=== PATIENT | male | born 1935 | race Caucasian/White ===

== ENCOUNTER 2017-11-29 18:42 | Emergency (ER) | payer MEDICARE, SELFPAY ==
[2017-11-29 18:43] VITALS: BP 138/74; PULSE 71; RESP 14; TEMP 36.9; O2SAT 99; BMI 24.5
--- NOTE | 2017-11-29 18:59 | CT_ITS ---
STUDY: CT BRAIN WITHOUT CONTRAST REASON FOR EXAM: Male, 82 years old. Trauma RADIATION DOSAGE (If Supplied By Facility): CTDIvol = ( 60.81 ) mGy, DLP = ( 1067.08 ) mGycm TECHNIQUE: Transaxial CT imaging of the brain was performed without administration of intravenous contrast material. Individualized dose optimization techniques were used for this CT. COMPARISON: None. FINDINGS: Normal soft tissue structures. Normal calvarium. There is mild cerebral atrophy with widening of the extra-axial spaces and ventricular dilatation. There are areas of decreased attenuation within the white matter tracts of the supratentorial brain, consistent with microvascular disease changes. There is an old lacunar infarct of the right thalamus. Normal brainstem. Normal cerebellum. There is no intracranial hemorrhage. There are no findings of an acute ischemic infarction. There is mucosal thickening of the left maxillary sinus. CT/Brain/Head without Contrast IMPRESSION: Chronic involutional changes of the brain. 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 Mucosal thickening of the left maxillary sinus. Electronically Signed: Kirby Zhao MD at 19:33 EST , Service support ,
[2017-11-29] MEDS: Diphth,Pertuss(Acell),Tet Vac 0.5 ML Vial IM (19:24)
--- NOTE | 2017-11-29 20:22 | ED.VISSUMM ---
- ER Visit Summary Date of Service: 11/29/17 Chief Complaint: Fall History of Present Illness: The patient is a 82 M who sees Pankaj Juvenal. He reports that they were walking the dog and the dog pulled him down. He hit his head on the ground. Did not have a loss of consciousness. Is not on blood thinners. He is unsure when his last tetanus shot was. He denies any neck, back, shoulder, wrist, or hip pain. Physical Examination: Vitals: Stable. Afebrile. Head: 2 cm laceration in the lateral portion of the right eyebrow that is irregular and has tissue missing. Abrasion to the right maxilla. Neck: No vertebral tenderness. Full ROM without difficulty. Cleared by NEXUS criteria. Back: No vertebral tenderness. General: A&O x 3. NAD. Cardiovascular exam: Regular rate and rhythm, no murmur, rub or gallop. Respiratory exam: Chest nontender. No crepitus. Clear to auscultation bilaterally. No wheezes or stridor. Abdominal exam: Soft, nontender, nondistended, normal bowel sounds. No pain in RUQ or LUQ specifically. No peritoneal signs. Extremity: Atraumatic. No pain with range of motion. Test Results: CT head shows chronic changes and no intracranial hemorrhage. Emergency Department Course and Treatment: Patient was treated with Adacel IM. He refused pain medications. He had his wound anesthetized and repaired. He tolerated it well. Treatment Plan: Will be discharged instructions to follow-up Pankaj Crosspkins as needed. Disposition: To home in improved and stable condition. Impression: 1. Fall. 2. Laceration right eyebrow, 2 cm, repaired. Procedure note: Wound was cleansed with chlorhexidine soap. Anesthetized with 1% lidocaine without epinephrine. Copiously irrigated with normal saline. Wound was explored there is no foreign material present. It was debrided to bring together the area with where there was missing tissue. It was closed with 8 simple interrupted 5-0 rapid Vicryl sutures. The patient tolerated it well. This note was generated with [employer] software. It may contain incorrect words, spelling, and punctuation that were not noted in review of the chart prior to signing ED Disposition - Plan for ED Patient: Disposition: Home or Assisted Living Chief Complaint: Laceration Instructions: ED Laceration Facial Sutr Tape Referrals: Teddy Herron [Primary Care Provider] - As Needed
[2017-11-29 20:34] VITALS: PULSE 52
== END 2017-11-29 20:36 | disposition home or self-care (01) ==
PROVIDERS: Emergency Provider Emergency Medicine; Family Provider Nurse Practitioner Family; PCP Nurse Practitioner Family
DX: S01.111A Laceration without foreign body of right eyelid and periocular area, initial encounter (principal); W18.39XA Other fall on same level, initial encounter; Y93.K1 Activity, walking an animal; Y92.9 Unspecified place or not applicable; Y99.9 Unspecified external cause status; I10 Essential (primary) hypertension; E78.00 Pure hypercholesterolemia, unspecified
CPT/HCPCS: 12011; 70450; 90471; 90715; 99283; A4216

== ENCOUNTER 2020-05-15 18:25 | Observation (INO) | payer MEDICARE, SELFPAY ==
[2020-05-15 18:26] VITALS: BP 105/86; PULSE 71; RESP 18; TEMP 37; O2SAT 95; BMI 16.9
--- NOTE | 2020-05-15 18:52 | ED.VIS.GEN ---
History of Present Illness Chief Complaint: Fall Informant: Patient, Family Narrative: Patient is an 84-year-old male with a history of dementia who presents to the ED with his for concerns of not being able to take care of him at home. She states that he has been having more frequent falls. He did have a fall today. She states that he will wander off and not listen to her. She does not have any help at home currently. It is that she is busy taking care of her sick mother as well. Patient denies any injury. Has no complaints at time of physical exam. states he has not been eating and is has had a significant weight loss. She feels like he is giving up. He denies taking any medications. Denies any recent illnesses. Denies any headache, vision changes. No chest pain or shortness of breath. No abdominal pain or nausea/vomiting. No injury to neck or back. Does have a small abrasion over the back of the neck. No injury to his extremities. Past Medical History - Allergies and Home Meds Allergies/Adverse Reactions: Allergies No Known Allergies Allergy (Verified 05/15/20 18:31) Prior records reviewed: Yes Past Medical History: - - Hypertension, hyperlipidemia, hypothyroidism Lives: Spouse/ Significant Other Smoking Status: Never smoker Review of Systems All systems negative except as indicated General: Denies: Chills, Fever, Sweats Eyes: Denies: Visual changes - bilaterally, Diplopia ENT: Denies: Rhinorrhea, Sore throat Cardiovascular: Denies: Chest pain, Palpitations Respiratory: Denies: Dyspnea, Cough, Dyspnea on exertion Gastrointestinal: Denies: Abdominal pain, Nausea, Vomiting, Diarrhea Genitourinary: Denies: Dysuria, Hematuria, Frequency Musculoskeletal: Denies: Neck pain, Back pain, Extremity Pain Skin: Denies: Rash, Wounds Neurological: Denies: Headache, Weakness, Numbness Physical Exam Vital Signs/Narrative: Vital Signs Temp Pulse Resp BP Pulse Ox 05/15/20 18:26 98.6 F 71 18 105/86 H 95 Inital Vital Signs reviewed: Yes General: Cachectic, No Acute Distress Head: Normocephalic, Atraumatic Eyes: Perrl, EOMI ENT: No rhinorrhea, Dry mucous membranes Neck: Supple, Nontender Cardiovascular: Regular rate, Regular rhythm, No murmurs Respiratory: No distress, CTA bilaterally, Chest nontender Abdomen: Soft, Nontender, Nondistended, Normal bowel sounds Back: Nontender, Normal Inspection. Negative for: Spinal tenderness Extremities: Nontender, No edema Skin: Normal color, No rash, - - Superficial skin abrasion over back and neck. Neurological: Alert, Cranial nerves II-XII grossly intact, Normal Strength, Normal Sensation, - - Patient oriented to person and place but not time. Psychological: Normal affect, Normal Mood Diagnostic/Tx/Re-eval - EKG Initial EKG Interpretation: - - Rate of 54 bpm in sinus bradycardia. Normal intervals. Normal axis. No ST elevations or depressions appreciated. No T wave abnormalities. No prior EKG for comparison. - Medical Decision Making Patient presents to the ED for what sounds like failure to thrive at home. He has been having frequent falls. does not feel comfortable taking care of him at home. She does not have any help. Will check basic lab work at this time. We will plan on bringing into the hospital for placement. Lab work showed a very mildly elevated white blood cell count. Very mildly anemic as well. Otherwise no significant abnormality on lab work-up. Troponin within normal limits. Patient and patient's are agreeable to bring him in for rehab evaluation and possible placement. He otherwise has been stable throughout ED stay. ED Disposition - Plan for ED Patient: Disposition: [facility] Diagnosis: Frequent falls, Failure to thrive, Ambulatory dysfunction
--- NOTE | 2020-05-15 18:56 | EKG12_ITS ---
Test Reason : WAKNESS Blood Pressure : / mmHG Vent. Rate : 054 BPM Atrial Rate : 054 BPM P-R Int : 174 ms QRS Dur : 076 ms QT Int : 428 ms P-R-T Axes : 044 001 038 degrees QTc Int : 405 ms Sinus bradycardia Septal infarct , age undetermined Abnormal ECG Confirmed by EDILBERTO HAMILTON ([id number]), editor producer CUONG BLUE ([id number]) on 05/19/2020 2:08:06 PM Referred By: DEANDRA Confirmed By:EDILBERTO HAMILTON
--- NOTE | 2020-05-15 18:56 | CT_ITS ---
STUDY: CT BRAIN WITHOUT CONTRAST REASON FOR EXAM: Male, 84 years old. FALL ON CONCRETE -- HX:HTN RADIATION DOSAGE (If Supplied By Facility): CTDIvol = ( 44.99 ) mGy, DLP = ( 863.60 ) mGycm TECHNIQUE: Transaxial CT imaging of the brain was performed without administration of intravenous contrast material. Individualized dose optimization techniques were used for this CT. COMPARISON: Previous study of 11/29/2017 FINDINGS: Normal soft tissue structures. Normal calvarium. There is mild cerebral atrophy with widening of the extra-axial spaces and ventricular dilatation. There are areas of decreased attenuation within the white matter tracts of the supratentorial brain, consistent with microvascular disease changes. Normal basal ganglia and thalami. Normal brainstem. There is mild cerebellar atrophy. There is no intracranial hemorrhage. There are no findings of an acute ischemic infarction. There is mild mucosal thickening of the right maxillary sinus. CT/Brain/Head without Contrast IMPRESSION: Chronic involutional changes of the brain. Mild mucosal thickening of the right maxillary sinus. There is no intracranial hemorrhage or calvarial fracture. Electronically Signed: Kirby Zhao MD at 20:09 EDT , Service support ,
[2020-05-15 19:42] LABS: Absolute Neutrophil Count 10.5 X10^3/uL (2.0-7.7); Basophil# 0.04 X10^3/uL; Basophil% 0.3 % (0-1); Eosinophil# 0.23 X10^3/uL; Eosinophils% 1.7 % (0-5); Hemoglobin 10.7 g/dL (13.0-16.5); Lymphocyte % 11.2 % (19-41); Mean Corp Hgb Conc 32.4 g/dL (32-36); Mean Corpuscular Hgb 31.9 pg (27.0-32.0); Mean Corpuscular Volume 98.5 fL (80-94); Mean Platelet Vol. 9.5 fl (6.2-12.0); Monocyte# 1.06 X10^3/uL; Monocyte% 7.9 % (0-10); NRBC Flagged by Analyzer 0 % (0-5); Neutrophil # 10.46 X10^3/uL (2.7-7.7); Neutrophil % 78.4 % (47-70); Platelet Count 199 K/mm3 (150-450); RBC Distribution Width CV 13.6 % (11.6-14.6); RBC Distribution Width SD 48.8 fl (35.1-43.9); Red Blood Count 3.35 M/mm3 (4.6-6.2); White Blood Count 13.4 K/mm3 (4.4-11.0)
--- NOTE | 2020-05-15 19:45 | RAD_ITS ---
STUDY: X-RAY CHEST REASON FOR EXAM: Male, 84 years old. WEAKNESS, PT FELL ON CONCRETE, EMS STATES HES BEEN OUTSIDE FOR AWHILE, CONCERNED FOR MORE FREQUENT FALLS TECHNIQUE: Single AP portable view of the chest. COMPARISON: None. FINDINGS: color television console monitor leads are present. There are prominent bronchopulmonary markings of the upper lobes. There is no demonstrated pleural abnormality. The heart size is within normal limits. Status post median sternotomy changes are seen. Normal mediastinum and ann marie. Normal visualized pulmonary arteries. There are calcified plaques of the aortic arch. Normal visualized thoracic spine. Normal visualized ribs, clavicles, and shoulders. There is no demonstrated abnormality of the visualized soft tissue structures of the upper abdomen. RAD/Chest 1 View (Portable) IMPRESSION: Prominent bronchopulmonary markings of the upper lobes. Comparison with any previous chest films is recommended if such are available. There is no evidence of liliana consolidation or atelectasis. Status post sternotomy. Calcified plaques of the aortic arch. Electronically Signed: Kirby Zhao MD at 20:02 EDT , Service support ,
[2020-05-15 19:58] LABS: Anion Gap 5 (5-15); BUN 13 mg/dL (7-18); BUN/Creat Ratio 13.2 RATIO (10-20); Chloride 110 mmol/L (98-107); Creatinine, Serum 0.98 mg/dL (0.70-1.30); EST Glomerular Filtration Rate 77 mL/min (>60); Est Glom Filt Rate - Afr Amer 93 mL/min (>60); Estimated Creatinine Clearance 37.78 ml/min; Glucose 87 mg/dL (74-106); Potassium 3.9 mmol/L (3.5-5.1); Sodium Level 143 mmol/L (136-145)
--- NOTE | 2020-05-15 20:19 | PCM.HP.STD ---
Problem List (1) Failure to thrive Status: Acute Qualifiers: Failure to thrive age range: in adult Qualified Code(s): R62.7 - Adult failure to thrive (2) Dementia Status: Chronic Qualifiers: Dementia type: unspecified type Dementia behavioral disturbance: without behavioral disturbance Qualified Code(s): F03.90 - Unspecified dementia without behavioral disturbance (3) HTN (hypertension) Status: Chronic Qualifiers: Hypertension type: essential hypertension Qualified Code(s): I10 - Essential (primary) hypertension (4) HLD (hyperlipidemia) Status: Chronic Qualifiers: Hyperlipidemia type: unspecified Qualified Code(s): E78.5 - Hyperlipidemia, unspecified (5) S/P AVR (aortic valve replacement) Status: Chronic (6) Carotid arterial disease Status: Chronic Qualifiers: Carotid artery disease type: unspecified Laterality: unspecified laterality Qualified Code(s): I77.9 - Disorder of arteries and arterioles, unspecified (7) Hypothyroidism Status: Chronic Qualifiers: Hypothyroidism type: unspecified Qualified Code(s): E03.9 - Hypothyroidism, unspecified (8) Anxiety and depression Status: Chronic (9) Frequent falls Status: Chronic History of Present Illness Date of Admission: 05/15/20 Chief Complaint: Adult Failure to Thrive, Progressing dementia, Frequent falls The patient is a 84 y/o M w/ PMHx: HTN, HLD, Anxiety and Depression, Hypothyroidism, BPH, Carotid disease with noted planning upcoming possible R CEA per Dr. Carcamo, Severe protein calorie malnutrition, Ongoing Chew Tobacco use, Valvular Heart Disease s/p AVR with [facility] valve 08/22/2012, Severe Dementia unclear type without behavioral disturbance history who presents to the [facility] ED on 05/15/20 with history of progressively worsening dementia over the last several months per spouse report and significant difficulties with frequent falls and wandering off. She denies any agitation or violent behavior per the patient. Patient's notes that her mother is been ill and had surgery and she is having a lot of difficulty taking care of him. Per spouse patient has not had any recent fever, chills, nausea, emesis, abdominal pain, dysuria, diarrhea, cough, shortness of breath. Work-up in the ED included T 90.6, heart rate 71, BP 105/86, respiratory rate 18, 95% on room air, CBC with WBC 13.4, hemoglobin 10.7, platelet 199 with left shift, BMP with chloride 110, troponin 0.016, EKG was sinus rhythm with nonspecific ST T wave changes with no acute evidence of ischemia, chest x-ray with prominent bronchopulmonary markings in the upper lobes with no comparison, no obvious consolidation or atelectasis, CT brain with chronic involutional changes with mild mucosal thickening of the right maxillary sinus with no acute intracranial findings otherwise. Past Medical History Past Medical History (Chronic Problems): Chronic Problems Frequent falls (Chronic) Dementia (Chronic) HTN (hypertension) (Chronic) HLD (hyperlipidemia) (Chronic) S/P AVR (aortic valve replacement) (Chronic) Carotid arterial disease (Chronic) Hypothyroidism (Chronic) Anxiety and depression (Chronic) Allergies No Known Allergies Allergy (Verified 05/15/20 18:31) Home Medications: Ambulatory Orders Medication Instructions Recorded Donepezil HCl 10 mg PO DAILY 11/29/17 Finasteride [Proscar] 5 mg PO DAILY 11/29/17 Levothyroxine [Synthroid] 50 mcg PO DAILY 11/29/17 Lovastatin [Mevacor] 40 mg PO DAILY 11/29/17 Metoprolol Tartrate [Lopressor 12.5 mg PO BID 11/29/17 (beta oly)] Aspirin [Aspirin, Baby] 81 mg PO DAILY@0800 05/15/20 Calcium Carbonate [Calcium] 500 mg PO DAILY 05/15/20 Cholecalciferol (VIT D3) [Vitamin 1,000 unit PO DAILY 05/15/20 D] Coconut Oil 1 tab PO DAILY 05/15/20 Ginkgo Biloba 1 tab PO DAILY 05/15/20 Grape Seed Complex 1 tab PO DAILY 05/15/20 Lisinopril 20 mg PO DAILY 05/15/20 [place]-3 Fatty Acids/Fish Oil 1 ea PO DAILY 05/15/20 [[place] 3 Fish Oil Softgel] Potassium Chloride [Klor-Con] 20 meq PO DAILY 05/15/20 Vitamin E 400 unit PO DAILY 05/15/20 Surgical History: - - AVR, bilateral total knee replacement x2 each side, hernia repairs at least 2-3 times, appendectomy. Psychiatric History: No pertinent psych hx Lives: Spouse/ Significant Other - Lives with his . Smoking Status: Never smoker Tobacco Use: Chew - With chronic chew tobacco usage now currently down to approximately 1 pack/week. Alcohol: Sober - Patient drank heavily but quit when he his current spouse. Drugs: None - *Family History Maternal History Items: Heart Disease, Stroke, - - Patient with maternal family history of stroke and heart disease. Paternal History Items: Cancer - Colon cancer., - - Patient with a paternal family history of colon cancer. Review of Systems Constitutional: Reports: Anorexia, Malaise, Weakness, Fatigue. Denies: Chills, Fever, Weight Change HEENT: Denies: Head Aches, Sinus Congestion, Sinus Drainage Cardiovascular: Denies: Chest Pain, Palpitations Respiratory: Denies: Cough, Shortness of breath at rest, Sputum production Gastrointestinal: Denies: Abdominal Pain, Nausea, Vomiting Genitourinary: Reports: Incontinence. Denies: Dysuria Musculoskeletal: Reports: Back Pain, Joint Pain. Denies: Joint Tenderness Skin: Reports: Skin Changes. Denies: Rash, Wounds Neurological: Reports: Confusion. Denies: Focal weakness, Numbness, Tingling Psychiatric: Denies: Anxiety, Depression, Homicidal Ideations, Suicidal Ideations Hematologic/ Lymphatic: Reports: Anemia, Easy Bruising, Easy Bleeding VTE Information - Inpt Only VTE Present on Admission: No VTE Mechan Device Prophylaxis: SCD's VTE Pharm Prophylaxis ordered?: Yes Patient Problems: Active and Suspected Problems Failure to thrive (Acute) Ambulatory dysfunction (Acute) Subjective: Patient seated upright in ED bed, no acute distress, does not know why he is in the ED and unable to answer orientation questions which is chronic. Objective: Physical Examination: General: awake, alert, oriented to self and , chronically severely demented, stable, remains cooperative, seated upright in the ED bed in no apparent distress. Skin: normal color, turgor, no icterus, cyanosis left occasional abrasion and scratch. HEENT: AT/NC, EOMI, PERRLA, mildly dry MM, + R carotid bruits, no JVD noted. Lungs: CTA bilaterally, moderate effort, mild decrease BL bases, no rales, ronchi or wheezing. Heart: Regular rate and rhythm; no gallop, rub audible, + SM. Abdomen: soft, cachectic appearing, NTTP, ND, normal BS, no HSM. Extremities: no cyanosis, clubbing, or edema, see skin. Neurological: patient awake, alert, oriented as noted; cognitive function baseline intact per spouse, severe underlying dementia; pupils equally reactive to light and accomodation; cranial nerves II-XII grossly normal, moving all 4 extremities, no focal deficits, strength moderately global decreased. Psychiatric: affect appears mildly flat otherwise normal, not agitated, no acute evidence of depressive or anxiety feelings. - Physical Exam Vitals/I&O's: Vital Signs Temp Pulse Resp BP Pulse Ox 98.6 F 71 18 105/86 H 95 05/15/20 18:26 05/15/20 18:26 05/15/20 18:26 05/15/20 18:26 05/15/20 18:26 Oxygen Delivery Method Room Air Weight: 104 lb 15.04 oz Body Mass Index (BMI) 16.9 Laboratory Results 05/15/20 19:30: WBC 13.4 H, RBC 3.35 L, Hgb 10.7 L, Hct 33.0 L, MCV 98.5 H, MCH 31.9, MCHC 32.4, RDW Std Deviation 48.8 H, RDW Coeff of Araceli 13.6, Plt Count 199, MPV 9.5, Immature Gran % (Auto) 0.500, Neut % (Auto) 78.4 H, Lymph % (Auto) 11.2 L, [place] % (Auto) 7.9, Eos % (Auto) 1.7, Baso % (Auto) 0.3, Absolute Neuts (auto) 10.5 H, Absolute Lymphs (auto) 1.50, Nucleated RBC % 0 05/15/20 19:30: Sodium 143, Potassium 3.9, Chloride 110 H, Carbon Dioxide 28.0, Anion Gap 5, BUN 13, Creatinine 0.98, Estim Creat Clear Calc 37.78, Est GFR (MDRD) Af Amer 93, Est GFR (MDRD) Non-Af 77, BUN/Creatinine Ratio 13.2, Glucose 87, Calcium 9.0, Troponin I 0.016 Assessment/Plan All Active Problems Failure to thrive (Acute) Ambulatory dysfunction (Acute) The patient is a 84 y/o M w/ PMHx: HTN, HLD, Anxiety and Depression, Hypothyroidism, BPH, Carotid disease with noted planning upcoming possible R CEA per Dr. Carcamo, Severe protein calorie malnutrition, Ongoing Chew Tobacco use, Valvular Heart Disease s/p AVR with [place] Alex[facility] valve 08/22/2012, Severe Dementia unclear type without behavioral disturbance history who presents to the [facility] ED on 05/15/20 with history of progressively worsening dementia over the last several months per spouse report and significant difficulties with frequent falls and wandering. 1. Adult failure to thrive with frequent falls, severe dementia without behavioral disturbance history, unclear type: We will admit to the medical surgical floor, to be cautious will also obtain urinalysis and plan repeat chest x-ray in a.m. although patient does have underlying lung disease thus patient findings on chest x-ray may be associated, will continue patient home donepezil regimen, will request physical and Occupational Therapy assessment as well as case management for plan discharge to likely facility specializing in dementia care, maintain on aspiration and fall precautions. 2. Valvular heart disease: Status post AVR in 2011, [place] valve noted on card provided per spouse, no recent echocardiogram noted in the [facility] system. 3. Carotid disease: Spouse notes patient is supposed to have upcoming right carotid intervention per Dr. Carcamo. Patient advanced disease process suggested possibly deferring this intervention. We will continue patient aspirin, statin, hypertensive regimen. 4. Severe protein calorie malnutrition: Evidenced per significantly reduced BMI, obvious fat and muscle loss, nutrition consulted. 5. Hypertension: Continue home regimen including lisinopril, metoprolol with hold parameters, PRN hydralazine. 6. Hyperlipidemia: Continue home statin regimen. 7. BPH: We will continue patient home Proscar regimen. 8. Chronic chew tobacco use: We will have patient on nicotine patch per discussion with spouse is unable to use gum. 9. DVT prophylaxis: SCDs, Lovenox. 10. CODE status: Patient ANTONIO is the patient's who is present and living will is currently in place. Discussed CODE status at length including difference between FULL code, DNR-CCA and DNR-CC status. Following discussions about the differences in these status, requested DNR CCA, no intubation with no aggressive interventions. Advanced Care Planning Face to Face Time: 16 minutes. OBSV E&M: 26297 Initial observation care L3 Procedures: 85642 Advncd Care Plan 30 Min
[2020-05-15 22:03] VITALS: BP 173/87; PULSE 61; RESP 24; TEMP 37.4; O2SAT 96
[2020-05-15 23:10] VITALS: BP 169/61; PULSE 48; RESP 18; TEMP 36.9; O2SAT 99
[2020-05-15 23:29] VITALS: BMI 16.2; BMI 16.3
[2020-05-16] VITALS (7 sets, daily range): BP systolic 121–158; BP diastolic 46–62; PULSE 43–53; RESP 16–18; TEMP 36.6–36.9; O2SAT 96–98
[2020-05-16 00:14] LABS: T4 Free Direct 1.33 ng/dL (0.76-1.46); Thyroid Stim Hormone (TSH) 0.15 uIU/mL (0.358-3.74)
[2020-05-16 02:04] LABS: Bacteria 0 SEEN /hpf (None Seen); Mucous, Urine 0 SEEN /hpf (<or=2+); Red Blood Cells-Urine 0 SEEN /hpf (0-5); Squamous Epithelial Cells - UA 0 SEEN /hpf (0-5); White Blood Cells 0 SEEN /hpf (0-5)
[2020-05-16 02:06] LABS: Color, Urine Yellow (Yellow); Glucose, Dipstick Normal (Normal); Ketone-Dipstick Negative (Negative); Leukocyte Esterase-Dipstick Negative /ul (Negative); Nitrite-Dipstick Negative (Negative); Occult Blood-Urine Negative /ul (Negative); Protein-Dipstick 15 mg/dl (Negative); Specific Gravity, Urine 1.015 (1.002-1.030); Urine Bilirubin Dipstick Negative (Negative); Urine Clarity Clear (Clear); Urine Urobilinogen Normal (Normal)
--- NOTE | 2020-05-16 05:20 | RAD_ITS ---
STUDY: X-RAY CHEST REASON FOR EXAM: Male, 84 years old. ABNORMAL PRIOR CXR TECHNIQUE: Single AP portable view of the chest. COMPARISON: Comparison is made with prior study dated 05/15/2020. FINDINGS: Stable increased markings in both upper lobes with areas of calcific densities. There is no demonstrated pleural abnormality. Sternal cerclage wires and vascular clips are present from a prior sternotomy and coronary artery bypass graft procedure (CABG). Calcified bilateral hilar lymph nodes. Normal visualized pulmonary arteries. There is atherosclerotic calcification of the aortic arch with tortuosity. Normal visualized thoracic spine. Normal visualized ribs, clavicles, and shoulders. There is no demonstrated abnormality of the visualized soft tissue structures of the upper abdomen. RAD/Chest 1 View (Portable) IMPRESSION: Stable examination demonstrating increased markings with areas of confluence in both upper lobes. Electronically Signed: Alexis Dillon, at 10:44 EDT , Service support ,
[2020-05-16] MEDS: Levothyroxine 50 MCG Tablet PO (06:14)
[2020-05-16 07:06] LABS: Absolute Lymphocyte Count 1.99 X10^3/uL (0.83-4.51); Absolute Neutrophil Count 8.3 X10^3/uL (2.0-7.7); Basophil# 0.03 X10^3/uL; Basophil% 0.3 % (0-1); Eosinophil# 0.32 X10^3/uL; Eosinophils% 2.8 % (0-5); Hematocrit 33.6 % (40-54); Hemoglobin 10.6 g/dL (13.0-16.5); Lymphocyte # 1.99 X10^3/ul (4.0); Lymphocyte % 17.4 % (19-41); Mean Corp Hgb Conc 31.5 g/dL (32-36); Mean Corpuscular Hgb 30.7 pg (27.0-32.0); Mean Corpuscular Volume 97.4 fL (80-94); Mean Platelet Vol. 9.3 fl (6.2-12.0); Monocyte# 0.75 X10^3/uL; Monocyte% 6.6 % (0-10); NRBC Flagged by Analyzer 0 % (0-5); Neutrophil % 72.6 % (47-70); Platelet Count 195 K/mm3 (150-450); RBC Distribution Width CV 13.6 % (11.6-14.6); RBC Distribution Width SD 49.4 fl (35.1-43.9); Red Blood Count 3.45 M/mm3 (4.6-6.2); White Blood Count 11.4 K/mm3 (4.4-11.0)
[2020-05-16 07:44] LABS: ALB/GLOB Ratio 0.7 RATIO (0.9-2.4); AST(SGOT) 13 U/L (15-37); Alanine Aminotransfer ALT/SGPT 9 U/L (16-61); Albumin, Serum 2.7 g/dL (3.2-5.0); Alkaline Phosphatase 69 U/L (45-117); Anion Gap 4 (5-15); BUN 15 mg/dL (7-18); BUN/Creat Ratio 17.3 RATIO (10-20); Calcium,Total 8.8 mg/dL (8.5-10.1); Chloride 106 mmol/L (98-107); Creatinine, Serum 0.87 mg/dL (0.70-1.30); EST Glomerular Filtration Rate 89 mL/min (>60); Est Glom Filt Rate - Afr Amer 108 mL/min (>60); Glucose 80 mg/dL (74-106); Protein, Total 6.7 g/dL (6.4-8.2); Sodium Level 142 mmol/L (136-145)
[2020-05-16] MEDS: Aspirin 81 MG TAB.CHEW PO (11:11)
[2020-05-16] MEDS: Lisinopril 20 MG Tablet PO (11:11)
[2020-05-16] MEDS: Finasteride 5 MG Tablet PO (11:12)
[2020-05-16] MEDS: Enoxaparin 40 MG/0.4 ML Syringe SC (11:12)
[2020-05-16] MEDS: Donepezil HCl 10 MG Tablet PO (11:12)
--- NOTE | 2020-05-16 12:10 | CASEMGMT ---
YISEL RAMON completed MANNING form with over the phone as patient has dementia. YISEL RAMON explained MANNING form to who voiced understanding. Brie gave telephone consent over the phone. Copy of MANNING form placed in patient's room, original filed in chart.
--- NOTE | 2020-05-16 12:27 | CASEMGMT ---
Addendum entered by Raya Pineda 05/16/20 12:37: [facility] does have beds available. Referral faxed and will await determination if they can accept. MORTEZA Calvillo Original Note: Social Work SW received referral that pt is not doing well at home and need SNF placement. Pt with dementia, phone call to pt Brie. Brie states that a few months go pt had three falls in three days and home therapy was started. At this time pt refuses to do exercises at home and has had a decline over the last two weeks. Pt is not able to shower and has to complete care, pt is incontinent of bowel and bladder and cognitive status is declining. 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 Brie emotional throughout conversation and support provided. SW explained insurance coverage as well as private pay and medicaid for ling term care. SW named list of facilities in network with insurance. Pt first choice is [facility] and second choice is [facility]. also made aware of visitor restrictions at SNF's due to Covid. Phone call to [facility] and they do not have beds available. VM left at [facility]. Will await return call. Plan: [facility], pending acceptance and insurance auth MORTEZA Calvillo
--- NOTE | 2020-05-16 15:41 | CASEMGMT ---
Social Work SW spoke with Lorin at [facility] and they are able to accept pt. Precert submitted to [facility] and return call from [facility] confirming that precert has been given. Covid test is pending at this time. PassRR completed. Pt updated and agreeable to discharge plan. Plan: [facility], can transfer after negative covid test is received. MORTEZA Calvillo
--- NOTE | 2020-05-16 15:43 | PN_ITS ---
Patient Problems: Active and Suspected Problems Failure to thrive (Acute) Ambulatory dysfunction (Acute) Subjective: Patient seen and examined. He was admitted for failure to thrive and frequent falls as well as dementia. He is for placement. He has no complaints this morning. He is hemodynamically stable. Review of systems otherwise negative. Vitals/I&O's: Vital Signs Temp Pulse Resp BP Pulse Ox 97.9 F 44 L 18 129/54 H 98 05/16/20 11:17 05/16/20 11:17 05/16/20 11:17 05/16/20 11:17 05/16/20 11:17 Oxygen Delivery Method Room Air Weight: 97 lb 10.636 oz Body Mass Index (BMI) 16.2 Intake and Output for Last 24 Hours 05/14/20 05/15/20 05/16/20 23:59 23:59 23:59 Intake Total 670 / 670 Balance 670 / 670 General: Alert, Oriented x3, Cooperative, No apparent distress HEENT: Atraumatic, PERRLA, EOMI, Normocephalic Oral: Dry Mucosa Neck: Supple, No JVD, Negative Carotid Bruits Lungs: Clear to auscultation, Normal air movement Cardiovascular: Regular rate, Regular Rhythm, Normal S1, Normal S2, No murmurs Abdomen: Bowel Sounds Present, Soft, Non Tender, Non-Distended, No Hepato- splenomegaly Extremities: No clubbing, No cyanosis, No edema, Capillary Refill Less than 3 Seconds Skin: No rashes, No breakdown Musculoskeletal: No Tenderness to Palpation of Joints or Extremities Lymphatic: No Cervical, Supraclavicular, or Inguinal Adenopathy Neurological: Cranial nerves II-XII grossly intact, Neuro grossly intact, Motor Exam 5/5 strength throughout Psych/Mental Status: Normal Affect, Appropriate, Alert and oriented to time, place, person, mood and affect Laboratory Results 05/15/20 19:30: WBC 13.4 H, RBC 3.35 L, Hgb 10.7 L, Hct 33.0 L, MCV 98.5 H, MCH 31.9, MCHC 32.4, RDW Std Deviation 48.8 H, RDW Coeff of Araceli 13.6, Plt Count 199, MPV 9.5, Immature Gran % (Auto) 0.500, Neut % (Auto) 78.4 H, Lymph % (Auto) 11.2 L, Rush % (Auto) 7.9, Eos % (Auto) 1.7, Baso % (Auto) 0.3, Absolute Neuts (auto) 10.5 H, Absolute Lymphs (auto) 1.50, Nucleated RBC % 0 05/15/20 19:30: Sodium 143, Potassium 3.9, Chloride 110 H, Carbon Dioxide 28.0, Anion Gap 5, BUN 13, Creatinine 0.98, Estim Creat Clear Calc 37.78, Est GFR (MDRD) Af Amer 93, Est GFR (MDRD) Non-Af 77, BUN/Creatinine Ratio 13.2, Glucose 87, Calcium 9.0, Troponin I 0.016 05/15/20 19:30: Magnesium 2.0, TSH 0.15 L, Free T4 1.33 05/16/20 01:50: Urine Color Yellow, Urine Clarity Clear, Urine pH 6.0, Ur Specific [place] 1.015, Urine Protein 15 H, Urine Glucose (UA) Normal, Urine Ketones Negative, Urine Occult Blood Negative, Urine Nitrite Negative, Urine Bilirubin Negative, Urine Urobilinogen Normal, Ur Leukocyte Esterase Negative, Urine RBC 0 SEEN, Urine WBC 0 SEEN, Ur Squamous Epith Cells 0 SEEN, Urine Bacteria 0 SEEN, Urine Mucus 0 SEEN 05/16/20 06:53: WBC 11.4 H, RBC 3.45 L, Hgb 10.6 L, Hct 33.6 L, MCV 97.4 H, MCH 30.7, MCHC 31.5 L, RDW Std Deviation 49.4 H, RDW Coeff of Araceli 13.6, Plt Count 195, MPV 9.3, Immature Gran % (Auto) 0.300, Neut % (Auto) 72.6 H, Lymph % (Auto) 17.4 L, Rush % (Auto) 6.6, Eos % (Auto) 2.8, Baso % (Auto) 0.3, Absolute Neuts (auto) 8.3 H, Absolute Lymphs (auto) 1.99, Nucleated RBC % 0 05/16/20 06:53: Sodium 142, Potassium 4.0, Chloride 106, Carbon Dioxide 32.0, Anion Gap 4 L, BUN 15, Creatinine 0.87, Estim Creat Clear Calc 39.60, Est GFR (MDRD) Af Amer 108, Est GFR (MDRD) Non-Af 89, BUN/Creatinine Ratio 17.3, Glucose 80, Calcium 8.8, Total Bilirubin 0.60, AST 13 L, ALT 9 L, Alkaline Phosphatase 69, Total Protein 6.7, Albumin 2.7 L, Globulin 4.0, Albumin/Globulin Ratio 0.7 L 05/16/20 13:18: COVID-19 (PASCUAL) Pending Current Medications Acetaminophen (Tylenol) 650 mg PO Q6H PRN PRN PRN Reason: Pain Score 1-10/Temp > 100.7 F Al Hydroxide/Mg Hydroxide (Mylanta Ii) 30 ml PO Q6H PRN PRN PRN Reason: Gastric Burning Albuterol Sulfate (Ventolin Aerosols) 2.5 mg INHALATION Q2H PRN PRN PRN Reason: Dyspnea, wheezing Aspirin (Aspirin, Baby) 81 mg PO DAILY@0800 [facility] Last Admin: 05/16/20 11:11 Dose: 81 mg Documented by: Atorvastatin Calcium (Lipitor) 10 mg PO QHS [facility] Donepezil HCl (Aricept) 10 mg PO DAILY [facility] Last Admin: 05/16/20 11:12 Dose: 10 mg Documented by: Enoxaparin Sodium (Lovenox) 40 mg SC DAILY [facility] Last Admin: 05/16/20 11:12 Dose: 40 mg Documented by: Finasteride (Proscar) 5 mg PO DAILY [facility] Last Admin: 05/16/20 11:12 Dose: 5 mg Documented by: Guaifenesin (Robitussin) 20 ml PO Q4H PRN PRN PRN Reason: COUGH Hydralazine HCl (Apresoline Iv) 10 mg IV Q4H PRN PRN PRN Reason: SBP > 160 Levothyroxine Sodium (Synthroid) 50 mcg PO DAILY@0600 [facility] Last Admin: 05/16/20 06:14 Dose: 50 mcg Documented by: Lisinopril (Zestril) 20 mg PO DAILY [facility] Last Admin: 05/16/20 11:11 Dose: 20 mg Documented by: Magnesium Hydroxide (Milk Of Magnesia) 30 ml PO DAILY PRN PRN PRN Reason: Constipation Melatonin (Melatonin) 3 mg PO QHS PRN PRN PRN Reason: INSOMNIA Metoprolol Tartrate (Lopressor (Beta Abner)) 12.5 mg PO BID [facility] Last Admin: 05/16/20 11:12 Dose: Not Given Documented by: Nicotine (Nicoderm Cq (Pbkc)) 14 mg TRANSDERM. DAILY [facility] Last Admin: 05/16/20 11:12 Dose: 14 mg Documented by: Nutritional Formula (Lactose Free) (Ensure Enlive) 120 ml PO 4X/DAY [facility] Last Admin: 05/16/20 11:12 Dose: 120 ml Documented by: Ondansetron HCl (Zofran) 4 mg IV Q8H PRN PRN PRN Reason: NAUSEA/VOMITING Potassium Chloride (K-Dur) 20 meq PO DAILY [facility] Last Admin: 05/16/20 11:11 Dose: 20 meq Documented by: Prochlorperazine Edisylate (Compazine Iv) 5 mg IV Q4H PRN PRN PRN Reason: Breakthrough nausea/vomiting Psyllium Hydrophilic Mucilloid (Metamucil) 1 packet PO DAILY PRN PRN PRN Reason: Constipation Senna/Docusate Sodium (Senokot-S, Carlota-Colace) 2 tablet PO BID PRN PRN PRN Reason: Constipation Sodium Chloride () 10 - 40 ml IV UD PRN PRN Reason: SALINE FLUSH Throat Lozenges (Cepacol Sore Throat Lozenge) 1 lozenge MUCOUS MEM Q2H PRN PRN PRN Reason: SORE THROAT Medical Necessity - Tobacco Use Smoking Status: Never smoker Tobacco Use: Chew Assessment/Plan All Active Problems Failure to thrive (Acute) Ambulatory dysfunction (Acute) 1#Debility due to frequent falls * PT OT on board. Fall precautions. #Failure to thrive * BMI is only 16. Nutrition consulted. Again fall precautions and PT OT on board. Will need placement. # Aortic valve disease s/p replacement: Stable. Had aortic valve replacement with [place] valve in 2011. # Severe protein calorie malnutrition: Nutrition on board. Await recommendations. #Hypertension: Also has been bradycardic today with heart rate going down to the 40s. Will hold metoprolol. Continue lisinopril. # Hyperlipidemia: Statin. # BPH: on Proscar. #Carotid stenosis: Due to have right carotid intervention by vascular surgery. On aspirin and statin. Follow-up with vascular surgeon outpatient basis. #Hypothyroidism: TSH was 0.15 but free T4 is within normal limits at 1.33. Continue Synthroid. DVT prophylaxis: Lovenox Disposition: We will need placement. Inpatient E&M: 23271 Subs Hosp L2
[2020-05-16] MEDS: Atorvastatin Calcium 10 MG Tablet PO (22:52)
[2020-05-17 02:55] VITALS: BP 115/55; PULSE 62; RESP 17; TEMP 36.7; O2SAT 95
[2020-05-17] MEDS: Levothyroxine 50 MCG Tablet PO (05:16)
[2020-05-17 07:06] VITALS: O2SAT 93
[2020-05-17 07:33] LABS: Absolute Lymphocyte Count 1.76 X10^3/uL (0.83-4.51); Absolute Neutrophil Count 4.1 X10^3/uL (2.0-7.7); Basophil# 0.03 X10^3/uL; Basophil% 0.4 % (0-1); Eosinophil# 0.55 X10^3/uL; Eosinophils% 7.6 % (0-5); Hematocrit 32.7 % (40-54); Hemoglobin 10.4 g/dL (13.0-16.5); Lymphocyte # 1.76 X10^3/ul (4.0); Lymphocyte % 24.4 % (19-41); Mean Corp Hgb Conc 31.8 g/dL (32-36); Mean Corpuscular Volume 97.3 fL (80-94); Mean Platelet Vol. 9.5 fl (6.2-12.0); Monocyte# 0.73 X10^3/uL; Monocyte% 10.1 % (0-10); NRBC Flagged by Analyzer 0 % (0-5); Neutrophil # 4.11 X10^3/uL (2.7-7.7); Neutrophil % 57.1 % (47-70); Platelet Count 208 K/mm3 (150-450); RBC Distribution Width CV 13.6 % (11.6-14.6); RBC Distribution Width SD 49.6 fl (35.1-43.9); Red Blood Count 3.36 M/mm3 (4.6-6.2); White Blood Count 7.2 K/mm3 (4.4-11.0)
[2020-05-17 07:51] LABS: Anion Gap 5 (5-15); BUN 22 mg/dL (7-18); BUN/Creat Ratio 27.7 RATIO (10-20); Calcium,Total 8.4 mg/dL (8.5-10.1); Chloride 104 mmol/L (98-107); EST Glomerular Filtration Rate 98 mL/min (>60); Est Glom Filt Rate - Afr Amer 119 mL/min (>60); Estimated Creatinine Clearance 43.07 ml/min; Glucose 94 mg/dL (74-106); Potassium 4.4 mmol/L (3.5-5.1); Sodium Level 138 mmol/L (136-145)
[2020-05-17 08:14] VITALS: BP 150/42; PULSE 66; RESP 18; TEMP 36.9; O2SAT 96
--- NOTE | 2020-05-17 08:16 | CASEMGMT ---
The COVID test is negative, SW let chart RN know that pt can discharge to senior living today. RAFIQ Conrad
[2020-05-17] MEDS: Enoxaparin 40 MG/0.4 ML Syringe SC (08:17)
[2020-05-17] MEDS: Donepezil HCl 10 MG Tablet PO (08:17)
[2020-05-17] MEDS: Finasteride 5 MG Tablet PO (08:17)
[2020-05-17] MEDS: Lisinopril 20 MG Tablet PO (08:17)
[2020-05-17] MEDS: Aspirin 81 MG TAB.CHEW PO (08:17)
--- NOTE | 2020-05-17 09:16 | PCM.TXEXTCAR ---
- Diet 05/15/20 23:30 Diet: Regular Diet Food consistency:: Regular Liquid Consistency:: Regular/Thin Is pt able to select menu?: No - Routine Orders/Code Status Enema Type: Fleetz Enema Frequency: Daily PRN Suppository Type: Dulcolax 10mg Suppository Frequency: Daily PRN - Wound(s) back of neck Wound Type: Abrasion back of rt calf Wound Type: Abrasion - Therapies Weight Bearing: Weight bearing as tolerated Physical Therapy: Eval and Treat Occupational Therapy: Eval and Treat - Allergies/Procedures Done in Hospital Allergies/Adverse Reactions: Allergies No Known Allergies Allergy (Verified 05/15/20 18:31) - Type of Care/Length of Stay Estimated LOS: Convalescent Care Less Than 30 days Type of Care Needed: Skilled Rehab Potential: Good Prognosis: Good - Additional Orders/Day of Discharge Day of Discharge: 05/17/20 - Dietary and Speech Recommendations Dietitian Recommendations/Changes: Continue Regular diet and ONS w/ medpass. Will provide magic cup/ensure pudding with meals and fortify pt meals. - Follow Up Care Primary Care Physician: NOT,DEFINED [NON-STAFF] - Please follow up with your Primary Care Physician in: 1-2 weeks
--- NOTE | 2020-05-17 09:18 | DS.PCM_ITS ---
Discharge Date and Diagnosis - Problem List Patient Problems: Active and Suspected Problems Failure to thrive (Acute) Ambulatory dysfunction (Acute) Date of Admission: 05/15/20 Date of Discharge: 05/17/20 - Primary Discharge Diagnosis Acute Problems: Active Problems Failure to thrive (Acute) Ambulatory dysfunction (Acute) - Secondary Discharge Diagnosis Chronic Problems: Chronic Problems Frequent falls (Chronic) Dementia (Chronic) HTN (hypertension) (Chronic) HLD (hyperlipidemia) (Chronic) S/P AVR (aortic valve replacement) (Chronic) Carotid arterial disease (Chronic) Hypothyroidism (Chronic) Anxiety and depression (Chronic) Hospital Course and Treatment Imaging Results: Diagnostic Data Brain CT 05/15/20 18:56 IMPRESSION: Chronic involutional changes of the brain. Mild mucosal thickening of the right maxillary sinus. There is no intracranial hemorrhage or calvarial fracture. Electronically Signed: Kirby Zhao MD at 20:09 EDT , Service support , Chest X-Ray 05/16/20 05:20 IMPRESSION: Stable examination demonstrating increased markings with areas of confluence in both upper lobes. Electronically Signed: Alexis Dillon, at 10:44 EDT , Service support , Patient is an 84 y/o male with an extensive PMH as outlined who was admitted via the ED with a complaint of progressively worsening confusion due to dementia. Patient had also been having frequent falls and wandering off. on admission denied any agitation or violent behavior inpatient but says she could not take care of him anymore as he was also caring for her mother and was overwhelmed with all the responsibility. On admission, labs and vitals were stable. He was admitted to be managed for debility due to frequent falls and worsening dementia. PT OT was consulted. He was skilled to go to a rehab facility. Patient was agreeable to this. He also had severe protein caloric malnutrition and dietary was consulted. Patient remained stable and was d ischarged to his [facility] on 05/17/2020. He is to follow-up with his primary care doctor in 1 to 2 weeks. He is also to follow-up with vascular surgery-Dr. Carcamo for 1 upcoming carotid artery intervention. Patient seen and examined prior to discharge. He had no complaints and felt well. Review of signs otherwise negative. Labs and vitals reviewed. Home medication reviewed and reconciled. O/E: Vital Signs Temp Pulse Resp BP Pulse Ox 98.3 F 72 18 124/61 H 97 05/17/20 13:29 05/17/20 13:29 05/17/20 13:29 05/17/20 13:29 05/17/20 13:29 General: Alert, Oriented x3, Cooperative, No apparent distress HEENT: Atraumatic, PERRLA, EOMI, Normocephalic Oral: Dry Mucosa Neck: Supple, No JVD, Negative Carotid Bruits Lungs: Clear to auscultation, Normal air movement Cardiovascular: Regular rate, Regular Rhythm, Normal S1, Normal S2, No murmurs Abdomen: Bowel Sounds Present, Soft, Non Tender, Non-Distended, No Hepato- splenomegaly Extremities: No clubbing, No cyanosis, No edema, Capillary Refill Less than 3 Seconds Skin: No rashes, No breakdown Musculoskeletal: No Tenderness to Palpation of Joints or Extremities Lymphatic: No Cervical, Supraclavicular, or Inguinal Adenopathy Neurological: Cranial nerves II-XII grossly intact, Neuro grossly intact, Motor Exam 5/5 strength throughout Psych/Mental Status: Normal Affect, Appropriate, Alert and oriented to time, place, person, mood and affect Plan is for discharge to SNF today. Summary of Care Provided: The patient is a 84 year old M [] Patient Problems: Active and Suspected Problems Failure to thrive (Acute) Ambulatory dysfunction (Acute) - Physical Exam Vitals/I&O's: Vital Signs Temp Pulse Resp BP Pulse Ox 98.4 F 66 18 150/42 H 96 05/17/20 08:14 05/17/20 08:14 05/17/20 08:14 05/17/20 08:14 05/17/20 08:14 Oxygen Delivery Method Room Air Weight: 97 lb 10.636 oz Body Mass Index (BMI) 16.2 Intake and Output for Last 24 Hours 05/15/20 05/16/20 05/17/20 23:59 23:59 23:59 Intake Total 1070 / 1270 400 / 400 Output Total 550 / 550 Balance 1070 / 1020 -150 / -150 Microbiology Past 72 Hours 05/16/20 01:50 Urine, Clean Catch Urine Culture - Preliminary Culture exhibits no growth. Laboratory Results 05/16/20 13:18: COVID-19 (PASCUAL) Not Detected 05/17/20 07:20: WBC 7.2, RBC 3.36 L, Hgb 10.4 L, Hct 32.7 L, MCV 97.3 H, MCH 31.0, MCHC 31.8 L, RDW Std Deviation 49.6 H, RDW Coeff of Araceli 13.6, Plt Count 208, MPV 9.5, Immature Gran % (Auto) 0.400, Neut % (Auto) 57.1, Lymph % (Auto) 24.4, [place] % (Auto) 10.1 H, Eos % (Auto) 7.6 H, Baso % (Auto) 0.4, Absolute Neuts (auto) 4.1, Absolute Lymphs (auto) 1.76, Nucleated RBC % 0 05/17/20 07:20: Sodium 138, Potassium 4.4, Chloride 104, Carbon Dioxide 29.0, Anion Gap 5, BUN 22 H, Creatinine 0.80, Estim Creat Clear Calc 43.07, Est GFR (MDRD) Af Amer 119, Est GFR (MDRD) Non-Af 98, BUN/Creatinine Ratio 27.7 H, Glucose 94, Calcium 8.4 L Current Medications Acetaminophen (Tylenol) 650 mg PO Q6H PRN PRN PRN Reason: Pain Score 1-10/Temp > 100.7 F Al Hydroxide/Mg Hydroxide (Mylanta Ii) 30 ml PO Q6H PRN PRN PRN Reason: Gastric Burning Albuterol Sulfate (Ventolin Aerosols) 2.5 mg INHALATION Q2H PRN PRN PRN Reason: Dyspnea, wheezing Aspirin (Aspirin, Baby) 81 mg PO DAILY@0800 [facility] Last Admin: 05/17/20 08:17 Dose: 81 mg Documented by: Atorvastatin Calcium (Lipitor) 10 mg PO QHS [facility] Last Admin: 05/16/20 22:52 Dose: 10 mg Documented by: Donepezil HCl (Aricept) 10 mg PO DAILY [facility] Last Admin: 05/17/20 08:17 Dose: 10 mg Documented by: Enoxaparin Sodium (Lovenox) 40 mg SC DAILY [facility] Last Admin: 05/17/20 08:17 Dose: 40 mg Documented by: Finasteride (Proscar) 5 mg PO DAILY [facility] Last Admin: 05/17/20 08:17 Dose: 5 mg Documented by: Guaifenesin (Robitussin) 20 ml PO Q4H PRN PRN PRN Reason: COUGH Hydralazine HCl (Apresoline Iv) 10 mg IV Q4H PRN PRN PRN Reason: SBP > 160 Levothyroxine Sodium (Synthroid) 50 mcg PO DAILY@0600 [facility] Last Admin: 05/17/20 05:16 Dose: 50 mcg Documented by: Lisinopril (Zestril) 20 mg PO DAILY [facility] Last Admin: 05/17/20 08:17 Dose: 20 mg Documented by: Magnesium Hydroxide (Milk Of Magnesia) 30 ml PO DAILY PRN PRN PRN Reason: Constipation Melatonin (Melatonin) 3 mg PO QHS PRN PRN PRN Reason: INSOMNIA Metoprolol Tartrate (Lopressor (Beta Abner)) 12.5 mg PO BID [facility] Last Admin: 05/16/20 11:12 Dose: Not Given Documented by: Nicotine (Nicoderm Cq (Pbkc)) 14 mg TRANSDERM. DAILY [facility] Last Admin: 05/17/20 08:17 Dose: 14 mg Documented by: Nutritional Formula (Lactose Free) (Ensure Enlive) 120 ml PO 4X/DAY [facility] Last Admin: 05/17/20 08:18 Dose: Not Given Documented by: Ondansetron HCl (Zofran) 4 mg IV Q8H PRN PRN PRN Reason: NAUSEA/VOMITING Potassium Chloride (K-Dur) 20 meq PO DAILY [facility] Last Admin: 05/17/20 08:17 Dose: 20 meq Documented by: Prochlorperazine Edisylate (Compazine Iv) 5 mg IV Q4H PRN PRN PRN Reason: Breakthrough nausea/vomiting Psyllium Hydrophilic Mucilloid (Metamucil) 1 packet PO DAILY PRN PRN PRN Reason: Constipation Senna/Docusate Sodium (Senokot-S, Carlota-Colace) 2 tablet PO BID PRN PRN PRN Reason: Constipation Sodium Chloride () 10 - 40 ml IV UD PRN PRN Reason: SALINE FLUSH Throat Lozenges (Cepacol Sore Throat Lozenge) 1 lozenge MUCOUS MEM Q2H PRN PRN PRN Reason: SORE THROAT Discharge Diet: Low fat/ Low Cholesterol Discharge Activity: Return to Normal Activity Weight Bearing Status: Weight bearing as tolerated Call your doctor if you observe: Dizziness, Fainting spells, Uncontrolled pain Home Medications: Medications to take at Discharge Donepezil HCl 10 mg PO DAILY 11/29/17 Finasteride [Proscar] 5 mg PO DAILY 11/29/17 Levothyroxine [Synthroid] 50 mcg PO DAILY 11/29/17 Lovastatin [Mevacor] 40 mg PO DAILY 11/29/17 Metoprolol Tartrate [Lopressor (beta abner)] 12.5 mg PO BID 11/29/17 Aspirin [Aspirin, Baby] 81 mg PO DAILY@0800 05/15/20 Calcium Carbonate [Calcium] 500 mg PO DAILY 05/15/20 Cholecalciferol (VIT D3) [Vitamin D3] 1,000 unit PO DAILY 05/15/20 Coconut Oil 1 tab PO DAILY 05/15/20 Ginkgo Biloba 1 tab PO DAILY 05/15/20 Grape Seed Complex 1 tab PO DAILY 05/15/20 Lisinopril 20 mg PO DAILY 05/15/20 Icard-3 Fatty Acids/Fish Oil [Icard 3 Fish Oil Softgel] 1 ea PO DAILY 05/15/20 Potassium Chloride [Klor-Con] 20 meq PO DAILY 05/15/20 Vitamin E 400 unit PO DAILY 05/15/20 Primary Care Physician: NOT,DEFINED [NON-STAFF] - Please follow up with your Primary Care Physician in: 1-2 weeks Disposition: Retirement facility Minutes spent on discharge:: 35 Patient Condition:: Stable Medical Necessity - Tobacco Use Smoking Status: Never smoker Tobacco Use: Chew Meaningful Use Info Meaningful Use Diagnoses (Choose all that apply): None applicable OBSV E&M: 52085 Observation care discharge
--- NOTE | 2020-05-17 09:38 | NURSING ---
called report to Henry Rojas at this time. Will call back with transport time.
[2020-05-17 13:29] VITALS: BP 124/61; PULSE 72; RESP 18; TEMP 36.8; O2SAT 97
--- NOTE | 2020-05-17 16:04 | NURSING ---
Called [facility] to update them that patient is still here and we are waiting on transport. 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
--- NOTE | 2020-05-17 17:07 | NURSING ---
called [facility] and patient's [facility] to notify them that patient was just picked up and is on his way to [facility].
== END 2020-05-17 17:00 | disposition skilled nursing facility (03) ==
LOC: ED 19:31 → MS3 21:27
PROVIDERS: Admitting Provider Family Medicine; Emergency Provider Emergency Medicine; PCP Nurse Practitioner Family; Visit Provider Student in an Organized Health Care Education/Training Program
DX: R62.7 Adult failure to thrive (principal); Z68.1 Body mass index [BMI] 19.9 or less, adult; R26.9 Unspecified abnormalities of gait and mobility; F03.90 Unspecified dementia, unspecified severity, without behavioral disturbance, psychotic disturbance, mood disturbance, and anxiety; E03.9 Hypothyroidism, unspecified; E78.5 Hyperlipidemia, unspecified; I10 Essential (primary) hypertension; R00.1 Bradycardia, unspecified; R29.6 Repeated falls; I77.9 Disorder of arteries and arterioles, unspecified; N40.0 Benign prostatic hyperplasia without lower urinary tract symptoms; F41.9 Anxiety disorder, unspecified; F32.9 Major depressive disorder, single episode, unspecified; F17.220 Nicotine dependence, chewing tobacco, uncomplicated; E43 Unspecified severe protein-calorie malnutrition; I65.21 Occlusion and stenosis of right carotid artery; Z79.899 Other long term (current) drug therapy; Z79.82 Long term (current) use of aspirin
CPT/HCPCS: 36415; 70450; 71045; 80048; 80053; 81001; 83735; 84439; 84443; 84484; 85025; 87086; 87088; 87635; 93005; 94799; 96372; 97162; 97166; 97802; 99218; 99251; 99285; A4216; G0378; G0463; U0003

== ENCOUNTER 2021-04-05 21:41 | Emergency (ER) | payer MEDICARE, SELFPAY ==
[2020-05-15 23:29] VITALS: BMI 16.2
[2021-04-05 21:42] VITALS: BP 112/64; PULSE 91; RESP 18; TEMP 36.6; O2SAT 81; BMI 19.6
[2021-04-05 21:45] VITALS: O2SAT 90
--- NOTE | 2021-04-05 22:20 | EKG12_ITS ---
Test Reason : DYSRHYTHMIA Blood Pressure : / mmHG Vent. Rate : 073 BPM Atrial Rate : 073 BPM P-R Int : 170 ms QRS Dur : 076 ms QT Int : 376 ms P-R-T Axes : 064 -02 052 degrees QTc Int : 414 ms Normal sinus rhythm Nonspecific ST abnormality Abnormal ECG Confirmed by SANDRA ORR, LISA ([id number]), tape editor CUONG BLUE ([id number]) on 04/08/2021 1:26:25 PM Referred By: RAYMUNDO Confirmed By:LISA FLORES MD
[2021-04-05] MEDS: Morphine 4 MG/ML Syringe IV (22:31)
[2021-04-05] MEDS: Ondansetron 4 MG/2 ML Vial IV (22:31)
[2021-04-05 22:32] VITALS: PULSE 76; O2SAT 94
--- NOTE | 2021-04-05 22:40 | RAD_ITS ---
HISTORY: Cough EXAMINATION/TECHNIQUE: XR Chest 1 View: Portable upright AP chest x-ray COMPARISON: 05/15/20 FINDINGS: LINES/DEVICES: None. LUNGS: Stable bilateral upper lobe densities with areas of consolidation, increased involvement of the bilateral midlung alejo without further consolidations. No pleural effusion or vascular congestion. MEDIASTINUM AND CARDIOVASCULAR STRUCTURES: Cardiac silhouette not enlarged. Central airways and mediastinal contour are unremarkable. BONES AND SOFT TISSUES: No acute bony abnormalities. Stable median sternotomy sutures. RAD/Chest 1 View (Portable) IMPRESSION: Progression of coarsened interstitial markings since prior study, possible progression of interstitial lung disease versus acute superimposed pneumonia. Recommend short-term follow-up in 7-10 days following treatment. at 2317 Reported and signed by: Rojelio Barnett MD Electronically Signed: Rojelio Barnett MD at 23:16 EDT Tel , Service support ,
[2021-04-05 22:49] LABS: Absolute Lymphocyte Count 1.99 X10^3/uL (0.83-4.51); Basophil# 0.04 X10^3/uL; Basophil% 0.2 % (0-1); Eosinophil# 0.18 X10^3/uL; Hematocrit 40.3 % (40-54); Lymphocyte # 1.99 X10^3/ul (0.83-4.51); Lymphocyte % 10.7 % (19-41); Mean Corp Hgb Conc 32.3 g/dL (32-36); Mean Corpuscular Hgb 31.2 pg (27.0-32.0); Mean Corpuscular Volume 96.6 fL (80-94); Mean Platelet Vol. 9.9 fl (6.2-12.0); Monocyte# 1.33 X10^3/uL; Monocyte% 7.1 % (0-10); NRBC Flagged by Analyzer 0 % (0-5); Neutrophil # 15.01 X10^3/uL (2.7-7.7); Neutrophil % 80.5 % (47-70); Platelet Count 242 K/mm3 (150-450); RBC Distribution Width CV 13.7 % (11.6-14.6); RBC Distribution Width SD 48.8 fl (35.1-43.9); Red Blood Count 4.17 M/mm3 (4.6-6.2); White Blood Count 18.7 K/mm3 (4.4-11.0)
[2021-04-05 22:55] LABS: Partial Thromboplast Time 27.5 Seconds (24.1-36.2); Prothrombin Time (Protime)PT. 12.5 SECONDS (11.7-14.9)
[2021-04-05 22:56] LABS: AST(SGOT) 26 U/L (15-37); Alanine Aminotransfer ALT/SGPT 21 U/L (16-61); Albumin, Serum 3.8 g/dL (3.2-5.0); Alkaline Phosphatase 67 U/L (45-117); Anion Gap 9 (5-15); BUN 38 mg/dL (7-18); BUN/Creat Ratio 22.4 RATIO (10-20); Calcium,Total 9.5 mg/dL (8.5-10.1); Chloride 107 mmol/L (98-107); EST Glomerular Filtration Rate 41 mL/min (>60); Est Glom Filt Rate - Afr Amer 49 mL/min (>60); Estimated Creatinine Clearance 24.04 ml/min; Glucose 111 mg/dL (74-106); Potassium 4.5 mmol/L (3.5-5.1); Protein, Total 7.8 g/dL (6.4-8.2); Sodium Level 141 mmol/L (136-145)
--- NOTE | 2021-04-05 23:00 | RAD_ITS ---
HISTORY: Injury/Pain EXAMINATION/TECHNIQUE: XR Hip Unilateral with Pelvis when performed; 2-3 Views: COMPARISON: None FINDINGS: BONES/JOINTS: Angulated fracture of the right femoral neck, femoral head remains in the acetabulum. Preservation of the joint spaces. No sclerotic or destructive changes observed. SOFT TISSUES: No soft tissue swelling or gas. Multiple surgical clips and sutures throughout the pelvis. RAD/HIP, UNI W/ Pelvis 2-3 Views IMPRESSION: Fracture right femoral neck with angulation. at [id number] Reported and signed by: Rojelio Barnett MD Electronically Signed: Rojelio Barnett MD at 23:54 EDT Tel , Service support ,
--- NOTE | 2021-04-06 00:20 | EDS_ITS ---
HPI History of Present Illness HPI Narrative: Patient presents with right hip fracture. [facility] [place] [facility]. X-ray shows a fracture of the right subcapital femur with impaction. Patient was then referred to the emergency department. Patient has a history of dementia and is a poor historian. Patient states he does not feel he broke his hip. Patient has DNR comfort care only order. Chief Complaint: Lower Extremity Injury Informant: patient, EMS and SNF Onset/Context/Timing Onset: Today Timing: Continuous Location: Right hip Worsened by: Movement Relieved by: Nothing Associated Symptoms Associated Symptoms: Negative for Parasthesia, Weakness and Loss of Funtion PFSH PFSH Home Medications Lovastatin [Mevacor] 40 mg PO DAILY 11/29/17 [History Last Taken 05/14/20] donepezil 10 mg PO DAILY 11/29/17 [History Last Taken 05/14/20] finasteride 5 mg PO DAILY 11/29/17 [History Last Taken 05/14/20] levothyroxine 50 mcg PO DAILY 11/29/17 [History Last Taken 05/14/20] metoprolol tartrate 12.5 mg PO BID 11/29/17 [History Last Taken 05/14/20] aspirin 81 mg PO DAILY@0800 05/15/20 [History Last Taken 05/14/20] calcium carbonate 500 mg PO DAILY 05/15/20 [History Last Taken 05/14/20] cholecalciferol (vitamin D3) 1,000 unit PO DAILY 05/15/20 [History Last Taken 05/14/20] lisinopril 20 mg PO DAILY 05/15/20 [History Last Taken 05/14/20] potassium chloride 20 meq PO DAILY 05/15/20 [History Last Taken 05/14/20] acetaminophen 1,000 mg PO DAILY 04/05/21 [History Last Taken Unknown] acetaminophen 1,000 mg PO Q6H PRN 04/05/21 [History Last Taken Unknown] alum-mag hydroxide-simeth 5 ml PO Q6H 04/05/21 [History Last Taken Unknown] bisacodyl 10 mg IA DAILY PRN 04/05/21 [History Last Taken Unknown] magnesium hydroxide [Milk of Magnesia] 30 ml PO DAILY PRN 04/05/21 [History Last Taken Unknown] mineral oil [Enema] 118 ml IA DAILY PRN 04/05/21 [History Last Taken Unknown] psyllium [Metamucil] 1 packet PO DAILY PRN PRN 04/05/21 [History Last Taken Unknown] Allergy/AdvReac Type Severity Reaction Status Date / Time No Known Allergies Allergy Verified 04/05/21 21:51 Social History Smoking Status: Never smoker ROS ROS ED Constitutional Constitutional ED: Denies chills or fever(s) Eyes Eyes: Denies blurry vision or change in vision ENT ENT ED: Denies rhinorrhea or sore throat Cardiovascular Cardiovascular: Denies chest pain or palpitations Respiratory/Chest Respiratory/Chest: Denies cough or dyspnea Gastrointestinal Gastrointestinal: Denies nausea or vomiting Genitourinary Genitourinary ED: Denies dysuria or hematuria Musculoskeletal Musculoskeletal: Denies back pain or neck pain Integumentary Denies abscess or rash Neurologic Neurologic: Denies headache(s) or weakness Allergic/Immunologic Allergic/Immunologic ED: Denies mouth swelling or urticaria EXAM Physical Exam Const Vital Signs: 04/05/21 21:42 04/05/21 21:45 04/05/21 22:32 Temperature 97.8 F Temperature Source Temporal Pulse Rate 91 76 Respiratory Rate 18 Blood Pressure 112/64 Blood Pressure Mean 80 Pulse Ox 81 90 94 Oxygen Delivery Method Room Air Nasal Cannula Nasal Cannula Oxygen Flow Rate (L/min) 4 4 04/06/21 00:41 Temperature Temperature Source Pulse Rate 78 Respiratory Rate 14 Blood Pressure 98/62 Blood Pressure Mean 74 Pulse Ox 92 Oxygen Delivery Method Nasal Cannula Oxygen Flow Rate (L/min) 4 Positive well nourished and well developed General Appearance ED: well developed HEENT normocephalic and atraumatic Chest Wall inspection of chest normal Resp normal respiratory effort and clear to auscultation bilaterally Cardio regular rate and regular rhythm GI non-tender Palpation: soft Neuro CN's II-XII intact bilaterally and no sensory deficits noted Sensorium / Orientation: alert and oriented to person MDM MDM MDM Narrative Medical decision making narrative: Patient was given morphine and Zofran here. CBC shows a leukocytosis of 18.7. PT with INR and PTT were normal. Comprehensive metabolic profile shows an elevated creatinine of 1.70 and a BUN of 38. Portable chest x-ray was obtained. There is 1 view. On my interpretation, there is progression of coarsened interstitial markings which may represent pneumonia or interstitial lung disease. Bony thorax is normal. There is no cardiomegaly. Radiologist also interpreted the x-ray and agrees. X-ray of the right hip was obtained. There are 3 views. On my interpretation, there is a basicervical fracture of the right femoral neck. There is some mild angulation. There is no displacement. Radiologist also interpreted the x-rays and agrees. Patient will be given IV fluids. Patient was ordered Rocephin and Zithromax. Case was discussed with the hospitalist. She was able to contact family. Family requested that the patient be made hospice. Patient will be transferred to the hospice facility. Lab Data Attestation: I reviewed the patient's lab results. Labs: Laboratory Results - last 24 hr 04/05/21 04/05/21 04/05/21 21:52 21:52 22:25 WBC 18.7 H RBC 4.17 L Hgb 13.0 Hct 40.3 MCV 96.6 H MCH 31.2 MCHC 32.3 RDW Std Deviation 48.8 H RDW Coeff of Araceli 13.7 Plt Count 242 MPV 9.9 Immature Gran % (Auto) 0.500 Neut % (Auto) 80.5 H Lymph % (Auto) 10.7 L [place] % (Auto) 7.1 Eos % (Auto) 1.0 Baso % (Auto) 0.2 Absolute Neuts (auto) 15.0 H Absolute Lymphs (auto) 1.99 Nucleated RBC % 0 PT 12.5 INR 1.0 APTT 27.5 Sodium 141 Potassium 4.5 Chloride 107 Carbon Dioxide 25.0 Anion Gap 9 BUN 38 H Creatinine 1.70 H Estim Creat Clear Calc 24.04 Est GFR (MDRD) Af Amer 49 L Est GFR (MDRD) Non-Af 41 L BUN/Creatinine Ratio 22.4 H Glucose 111 H Calcium 9.5 Total Bilirubin 0.60 AST 26 ALT 21 Alkaline Phosphatase 67 Total Protein 7.8 Albumin 3.8 Globulin 4.0 Albumin/Globulin Ratio 1.0 Radiography Diagnostic Testing: Radiology Impression Chest X-Ray 04/05/21 22:40 IMPRESSION: Progression of coarsened interstitial markings since prior study, possible progression of interstitial lung disease versus acute superimposed pneumonia. Recommend short-term follow-up in 7-10 days following treatment. at 2317 Reported and signed by: Rojelio Barnett MD Electronically Signed: Rojelio Barnett MD at 23:16 EDT Tel , Service support , Hip/Pelvis X-Ray 04/05/21 23:00 IMPRESSION: Fracture right femoral neck with angulation. at 2355 Reported and signed by: Rojelio Barnett MD Electronically Signed: Rojelio Barnett MD at 23:54 EDT Tel , Service support , EKG Initial EKG: Attestation: I personally reviewed and interpreted this EKG as follows: Interpretation: Sinus Rhythm (73) and Non-Specific ST Changes Prior EKG tracings: available for review Prior: Unchanged Discharge Plan Triage Chief Complaint: Lower Extremity Injury ED Provider: Antonio Sargent Dx/Rx/DC Orders Clinical Impression: Fracture of femoral neck, right, closed Instructions: Starting Hospice, ED Pneumonia (Adult) Prescriptions: No Action donepezil 10 MG tablet 10 mg PO DAILY RF: 0 levothyroxine 50 MCG tablet 50 mcg PO DAILY RF: 0 finasteride 5 MG tablet 5 mg PO DAILY RF: 0 metoprolol tartrate 25 MG tablet 12.5 mg PO BID RF: 0 Lovastatin [Mevacor] 40 MG tablet 40 mg PO DAILY RF: 0 lisinopril 20 MG tablet 20 mg PO DAILY RF: 0 potassium chloride 20 MEQ packet 20 meq PO DAILY RF: 0 aspirin 81 MG tablet,chewable 81 mg PO DAILY@0800 RF: 0 calcium carbonate 500 MG tablet,chewable 500 mg PO DAILY RF: 0 cholecalciferol (vitamin D3) 1,000 UNIT tablet 1,000 unit PO DAILY RF: 0 Metamucil Packet 1 packet PO DAILY PRN PRN (Reason: Constipation) RF: 0 acetaminophen 500 mg Tablet 1,000 mg PO Q6H PRN (Reason: Pain) RF: 0 acetaminophen 500 mg Tablet 1,000 mg PO DAILY RF: 0 mineral oil [Enema] Enema 118 ml IA DAILY PRN (Reason: Constipation) RF: 0 magnesium hydroxide [Milk of Magnesia] 400 mg/5 mL Suspension 30 ml PO DAILY PRN (Reason: Constipation) RF: 0 bisacodyl 10 mg Suppository 10 mg IA DAILY PRN (Reason: Constipation) RF: 0 alum-mag hydroxide-simeth 200-200-20 mg/5 mL Suspension 5 ml PO Q6H RF: 0 Primary Care Provider: Raj Gandhi Referrals: Raj Gandhi MD [Primary Care Provider] - Disposition Disposition: Hospice in Medical Facility Discharge Location: [facility] Discharge Date/Time: 04/06/21 04:09
[2021-04-06 00:41] VITALS: BP 98/62; PULSE 78; RESP 14; O2SAT 92
--- NOTE | 2021-04-06 01:32 | ED.RN ---
PTs has discussed POC with Dr. Smith and would like for PT moved to hospice. snack steward called.
--- NOTE | 2021-04-06 01:33 | PCM.HOSP.N ---
Hospitalist Note History and Physical: Chief Complaint: Fall with R hip, RLE pain. The patient is a 85 y/o M w/ PMHx: Chew Tobacco use Hx, Carotid disease, Valvular Heart Disease s/p AVR, Hypothyroidism, Anxiety and Depression, Dementia unclear type with unclear behavioral disturbance history, Gait debility with frequent falls who presents to the [facility] ED on on 04/05/21 with [facility] prompting transition to the ED for concern for right femur fracture with intractable pain and debility. Patient upon ED evaluation notes discomfort with movement but is a poor historian with underlying significant dementia. Allergies: No known drug allergies Home medications: Alum?mag hydroxide?simethicone 5 mill p.o. every 6 hours as needed Magnesium hydroxide 30 mils p.o. daily as needed Metamucil 1 packet p.o. daily as needed Mineral oil enema 118 mill per rectum daily as needed Bisacodyl 10 mg DE daily as needed Acetaminophen 1000 mg p.o. every 6 hours as needed Vitamin D3 1000 unit p.o. daily Potassium chloride 20 mill equivalent p.o. daily Metoprolol tartrate 12.5 mg p.o. twice daily Lisinopril 20 mg p.o. daily Levothyroxine 50 mcg p.o. daily Lovastatin 40 mg p.o. daily Finasteride 5 mg p.o. daily Donepezil 10 mg p.o. daily Calcium carbonate 500 mg p.o. daily Aspirin 81 mg p.o. daily Social Hx: [facility] but prior to this had lived with his , no tobacco use history but has have chew tobacco usage down approximately 1 pack weekly previous to skilled transition, patient is sober but drank heavily prior to marrying his current spouse, no illicit drug usage. 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 Family Hx: Patient with maternal family history of heart disease and stroke. Patient with a paternal family history of cancer specifically colon cancer. Admission Review of Systems: ROS per patient and per [facility] facility as patient is poor informant CONSTITUTIONAL: No weight loss, fever, chills, + weakness or fatigue. HEENT: Eyes: No visual loss, blurred vision, double vision or yellow sclerae. Ears, Nose, Throat: No hearing loss, sneezing, congestion, runny nose or sore throat. SKIN: No rash or itching, lesions, wounds. CARDIOVASCULAR: No chest pain, chest pressure or chest discomfort, palpitations, edema, orthopnea, syncopal events. RESPIRATORY: + shortness of breath, cough, No wheezing, hemoptysis. GASTROINTESTINAL: No anorexia, nausea, vomiting or diarrhea, abdominal pain, melena, BRBPR. GENITOURINARY: No dysuria, frequency, urgency or retention. NEUROLOGICAL: + Frequent falls, gait imbalance, dementia, No headache, dizziness, syncope, paralysis, ataxia, numbness or tingling in the extremities, focal weakness, change in bowel or bladder control, seizure. MUSCULOSKELETAL: + muscle, back pain, joint pain or stiffness. HEMATOLOGIC: + anemia, bleeding or bruising. LYMPHATICS: No enlarged nodes. No history of splenectomy. PSYCHIATRIC: + history of depression or anxiety. ENDOCRINOLOGIC: No reports of sweating, cold or heat intolerance. No polyuria or polydipsia. ALLERGIES: No history of asthma, hives, eczema or rhinitis. Labs: CBC with WBC 18.7, hemoglobin 13, platelet 242 with left shift Imaging: Plain film of the right unilateral hip and pelvis with noted fracture of the right femoral neck with angulation Chest x-ray with progression of coarsened interstitial markings since prior study likely progression of interstitial lung disease versus possible pneumonia Unremarkable coags CMP with BUN/creatinine 38/1.70, glucose 111, unremarkable hepatic profile Rapid SARS Covid antigen negative EKG: VS: T 97.8, heart rate 91, BP 112/64, respiratory rate 18, initially 81% on room air with improvement to 94% on 4 L nasal cannula. Physical Examination: General: awake, alert, oriented to self only, believes he is at home and can not give the year, month, date, chronically severely demented which is baseline, laying in the ED bed, s/p fall w/ R hip fx. Skin: normal color, normal turgor, no icterus, no cyanosis except occasional staged ecchymoses. HEENT: AT/NC, EOMI, PERRLA, mildly dry MM, no JVD noted. Lungs: CTA bilaterally, moderate effort, mild decrease BL bases, no rales, ronchi or wheezing. Heart: Regular rate and rhythm; no gallop, rub audible, + SM. Abdomen: soft, cachectic appearing, NTTP, ND, normal BS, no HSM. Extremities: no cyanosis, no clubbing, status post mechanical fall with right hip fracture, peripheral pulses intact, mildly edematous. Neurological: patient awake, alert, oriented as noted; cognitive function baseline intact per spouse, severe underlying dementia; pupils equally reactive to light and accomodation; cranial nerves grossly normal, moving all 4 extremities except expected limited movement right lower extremity given fall with fracture, strength accordingly severely globally decreased. Psychiatric: affect appears uncomfortable, no acute evidence of depressive or anxiety feelings. Assessment and Plan: The patient is a 85 y/o M w/ PMHx: Chew Tobacco use Hx, Carotid disease, Valvular Heart Disease s/p AVR, Hypothyroidism, Anxiety and Depression, Dementia unclear type with unclear behavioral disturbance history, Gait debility with frequent falls who presents to the [facility] ED on on 04/05/21 with [facility] of [facility] prompting transition to the ED for concern for right femur fracture with intractable pain and debility. 1. Acute Sepsis secondary to Acute Hypoxia secondary to Suspected Pneumonia, possible GN/GP organism (SNF) complicated by underlying Chronic Interstital Lung Disease: Will admit to PCU, maintain on oxygen with wean as tolerated to room air, continue ATC duonebs, PRN albuterol, maintained on IV Zosyn and Vancomycin pending MRSA screen and procalcitonin, HOB, IS parameters w/ pending sputum cultures, respiratory viral panel and urine antigens. 2. General debility, R hip/RLE pain s/p mechanical fall w/ fracture of the right femoral neck with angulation: Orthopedic surgery consulted from ED. Will maintain NPO in case of clearance for OR however lower suspicion for possible OR in the next 24 hours given #1, continue gentle IVFs, gardner placement, monitor I/Os, frequent positioning, fall precautions, Pain, anti-emetic regimen. PT/OT following operative intervention. CM consulted for discharge planning. NSQIP with high risk given patient advanced age, underlying co-morbidities complicated by lung disease and acute infection as noted. Will maintain on telemetry monitoring in the PCU and will request Pulmonary consultation for clearance for OR transition per protocol. 3. Acute kidney injury: Secondary to acute presentation #1, #2. Admission BUN/Cr 38/1.70, prior baseline creatinine noted to be 0.8-0.9 most recently 05/17/2020 thus there may have been some progression of disease but this would be a significant jump. Will judiciously hydrate, hold nephrotoxic medications and repeat chemistry in AM. Additional Co-morbidities: Carotid disease: We will continue patient aspirin unless preference for hold per orthopedic surgery, statin, hypertensive regimen with alterations given CHINYERE. Hypertension: Continue home regimen including metoprolol, holding lisinopril given CHINYERE as noted with resumption once appropriate, PRN hydralazine. Hyperlipidemia: Continue home statin regimen. BPH: We will continue patient home finasteride regimen. Hypothyroidism: Continue home synthroid regimen. Chronic dementia, unclear type with unclear behavioral disturbance history: Complicates presentation especially #2, continue patient donepezil regimen, fall precautions. Chew tobacco use: Encourage continued tobacco to cessation. Former alcohol abuse: Encouraged continued sobriety. DVT prophylaxis: SCD, hold for possible OR. Awaiting callback from family to discuss CODE STATUS as currently appears the patient may be DNRCC but unclear if family might want intervention including operative intervention and treatment of sepsis, pneumonia and CHINYERE.
[2021-04-06] MEDS: Morphine 4 MG/ML Syringe IV (04:05)
[2021-04-06 04:06] VITALS: BP 94/56; PULSE 70; RESP 14
== END 2021-04-06 04:09 | disposition hospice, inpatient (51) ==
PROVIDERS: Emergency Provider Emergency Medicine; PCP Family Medicine
DX: S72.011A Unspecified intracapsular fracture of right femur, initial encounter for closed fracture (principal); W19.XXXA Unspecified fall, initial encounter; Y93.9 Activity, unspecified; Y92.129 Unspecified place in nursing home as the place of occurrence of the external cause; Y99.9 Unspecified external cause status; Z66 Do not resuscitate; E03.9 Hypothyroidism, unspecified; E78.5 Hyperlipidemia, unspecified; F03.91 Unspecified dementia, unspecified severity, with behavioral disturbance; F10.10 Alcohol abuse, uncomplicated; F32.9 Major depressive disorder, single episode, unspecified; F41.9 Anxiety disorder, unspecified; I10 Essential (primary) hypertension; N40.0 Benign prostatic hyperplasia without lower urinary tract symptoms; Z79.82 Long term (current) use of aspirin; Z79.899 Other long term (current) drug therapy; Z82.49 Family history of ischemic heart disease and other diseases of the circulatory system
CPT/HCPCS: 71045; 73502; 80053; 85025; 85610; 85730; 87426; 93005; 99285; A4216; J0696; J2405